=== PATIENT | female | born 2000 | race African-American/Black ===

== ENCOUNTER 2022-06-16 23:28 | Emergency (ER) | payer OTHER ==
[~2022-06-16] VITALS: Ht 167.6 cm; Wt 90.7 kg
[2022-06-17] MEDS ORDERED: CEFDINIR300 MG PO (00:15)
[2022-06-17] MEDS ORDERED: MEDROL4 M2 PO (00:15)
[2022-06-17 00:25] VITALS: BP 125/71
== END 2022-06-17 00:27 | disposition home or self-care (01) ==
LOC: ER 23:49
DX: H66.92 Otitis media, unspecified, left ear (principal); R20.2 Paresthesia of skin
CPT/HCPCS: 99283